=== PATIENT | male | born 1975 | race Two or more races ===

== ENCOUNTER 2017-11-24 01:24 | Emergency (ER) | payer SELFPAY ==
[~2017-11-24] VITALS: Ht 172.7 cm; Wt 72.9 kg
[2017-11-24] MEDS ORDERED: IPRATROPIUM BROMIDE (0.02%) 0.5MG/2.5ML NEB HHN STA (04:08)
[2017-11-24] MEDS ORDERED: ALBUTEROL (0.083%) 2.5MG/3ML NEB HHN STA (04:08)
[2017-11-24] MEDS ORDERED: PREDNISONE 20MG TABLET PO STA (04:08)
[2017-11-24 05:00] VITALS: BP 122/74
== END 2017-11-24 05:15 | disposition home or self-care (01) ==
LOC: ER 01:24
DX: R05 Cough (principal); R06.2 Wheezing
CPT/HCPCS: 71045; 94640; 99283; J7512; J7611

== ENCOUNTER 2018-04-30 15:51 | Inpatient (IN) | payer SELFPAY ==
[~2018-04-30] VITALS: Ht 182.9 cm; Wt 74.8 kg
[2018-04-30] MEDS ORDERED: FAMOTIDINE 20MG/2ML VIAL IV STA (21:05)
[2018-04-30] MEDS ORDERED: MAGNESIUM/ALUMINUM HYDROXIDE/SIMETHICONE 30ML UDC PO STA (21:05)
[2018-04-30] MEDS ORDERED: SODIUM CHLORIDE 0.9% 1,000 ML IV ONE (21:05)
[2018-04-30] MEDS ORDERED: ONDANSETRON HCL 4MG/2ML VIAL IV STA (21:05)
[2018-04-30 21:42] LABS: BASOPHILS % 0.6 % (0.0-2.0); EOSINOPHILS % 0.2 % (0.0-5.0); HEMATOCRIT. 41.2 % (42.0-52.0); HEMOGLOBIN. 13.7 g/dL (14.0-18.0); LYMPHOCYTES % 15.4 % (20.0-50.0); MEAN CORPUSCULAR HEMOGLOBIN 29.9 pg (28.0-32.0); MEAN CORPUSCULAR VOLUME 90.1 fL (80.0-94.0); MEAN PLATELET VOLUME 8.6 fl (7.4-10.4); MONOCYTES % 7.6 % (2.0-8.0); NEUTROPHILS % 76.2 % (40.0-76.0); PLATELET 206 x1000/uL (130-400); RED BLOOD CELL COUNT 4.58 mill/uL (4.7-6.1); RED CELL DISTRIBUTION WIDTH 14.1 % (11.6-14.6)
[2018-04-30 21:45] LABS: CHLORIDE 103 mEq/L (98-107)
[2018-04-30 21:49] LABS: PROTHROMBIN TIME 10.5 sec (9.4-11.6)
[2018-04-30] MEDS ORDERED: IOHEXOL-300 100 ML BOTTLE ONE (22:52)
[2018-04-30] MEDS ORDERED: METRONIDAZOLE 500 MG PREMIX 100 ML IV ONE (23:30)
[2018-04-30] MEDS ORDERED: LEVOFLOXACIN 500MG PREMIX 100 ML IV ONE (23:30)
[2018-05-01] MEDS ORDERED: SODIUM CHLORIDE 0.9% 1,000 ML IV SCH (02:38)
[2018-05-01] MEDS ORDERED: MORPHINE SULFATE 4 MG/ML CPJ (NOT FOR IM USE) IV PRN ×3 (02:45→07:45)
[2018-05-01] MEDS ORDERED: DIPHENHYDRAMINE 50MG/ML VIAL IV PRN (02:45)
[2018-05-01] MEDS ORDERED: ACETAMINOPHEN 650MG SUPP PR PRN (02:45)
[2018-05-01 04:39] LABS: CLARITY URINE CLEAR (CLEAR); COLOR URINE ORANGE (YELLOW); KETONES URINE NEGATIVE (NEGATIVE); LEUKOCYTE ESTERASE URINE NEGATIVE (NEGATIVE); NITRITE URINE NEGATIVE (NEGATIVE); OCCULT BLOOD URINE NEGATIVE (NEGATIVE); PROTEIN URINE NEGATIVE (NEGATIVE); SPECIFIC GRAVITY URINE 1.059 (1.005-1.030)
[2018-05-01] MEDS ORDERED: LEVOFLOXACIN 500MG PREMIX 100 ML IV SCH (05:38)
[2018-05-01] MEDS ORDERED: METRONIDAZOLE 500 MG PREMIX 100 ML IV SCH (05:39)
[2018-05-01] MEDS ORDERED: SKIN ADHESIVE 0.7 GM EA TOP ONE (06:12)
[2018-05-01] MEDS ORDERED: BUPIVACAINE HCL 0.5% (5MG/ML) 50ML ONE (06:12)
[2018-05-01] MEDS ORDERED: PROPOFOL 200MG/20ML VIAL IV ONE (06:24)
[2018-05-01] MEDS ORDERED: ROCURONIUM BROMIDE 10MG/ML VIAL 5ML IV ONE (06:27)
[2018-05-01] MEDS ORDERED: FENTANYL CITRATE/PF 50MCG/ML 2ML VIAL ONE (07:06)
[2018-05-01] MEDS ORDERED: NEOSTIGMINE METHYLSULFATE 1MG/ML 10 ML VIAL ONE (07:21)
[2018-05-01] MEDS ORDERED: GLYCOPYRROLATE 0.2 MG/ML 2ML VIAL ONE (07:34)
[2018-05-01] MEDS ORDERED: LIDOCAINE HCL/PF 1% 10 MG/ML 5ML VIAL ONE (07:35)
[2018-05-01] MEDS ORDERED: ONDANSETRON HCL 4MG/2ML VIAL ONE (07:35)
[2018-05-01] MEDS ORDERED: SUCCINYLCHOLINE CHLORIDE 200MG/10ML VIAL IV ONE (07:35)
[2018-05-01] MEDS ORDERED: HYDROCODONE/ACETAMINOPHEN 5/325MG TABLET PO PRN ×2 (07:45)
[2018-05-01] MEDS ORDERED: ONDANSETRON HCL 4MG/2ML VIAL IV PRN (07:45)
[2018-05-01] MEDS: HYDROMORPHONE HCL/PF 2MG/ML CPJ IV PRN ×2 (08:28→08:47)
[2018-05-01 12:12] VITALS: BP 105/60
[2018-05-01] MEDS ORDERED: FAMOTIDINE 20MG/2ML VIAL IV SCH (13:16)
[2018-05-01 13:27] VITALS: BP 105/60
[2018-05-01] MEDS ORDERED: ONDANSETRON 4MG ODT PO PRN (13:27)
[2018-05-01] MEDS ORDERED: SODIUM CHLORIDE 0.9% INJ 3ML FLUSH IVF SCH (14:00)
[2018-05-01] MEDS ORDERED: PIPERACILLIN/TAZ 3.375G PREMIX 50 ML IV SCH (14:30)
[2018-05-01] MEDS: DEXT 5%/0.45% NACL KCL 20MEQ/L 1,000 ML IV SCH ×2 (15:20→17:11)
[2018-05-01 16:00] VITALS: BP 104/56
[2018-05-01 16:31] VITALS: BP 104/56
== END 2018-05-01 17:40 | disposition home or self-care (01) | DRG 225 ==
LOC: ER 15:51 → 6EST 23:41 → ENRESERV 05-01 06:49
PROVIDERS: ADMIT Internal Medicine; ATTEND Internal Medicine
PROC: 0DTJ4ZZ Resection of Appendix, Percutaneous Endoscopic Approach (ICD-10-PCS; principal; 2018-05-01 06:30)
DX: K35.80 Unspecified acute appendicitis (principal); R65.10 Systemic inflammatory response syndrome (SIRS) of non-infectious origin without acute organ dysfunction; Z82.49 Family history of ischemic heart disease and other diseases of the circulatory system; Z83.3 Family history of diabetes mellitus
CPT/HCPCS: 36415; 74177; 80053; 81003; 83690; 85025; 85610; 87040; 93970; J0330; J1170; J1956; J2405; J2543; J2704; J2710; J3010; J3490; J7030; J7040; J7120; Q0162; Q9967